=== PATIENT | male | born 1960 | race African-American/Black ===

== ENCOUNTER 2018-09-14 07:19 | Inpatient (IN) ==
[2018-09-14] MEDS ORDERED: INFLUENZA VIRUS VACCINE 0.5 ML SYRINGE IM ONE (09:19)
[2018-09-14] MEDS ORDERED: ONDANSETRON 4 MG/2 ML VIAL IV PRN (10:06)
[2018-09-14] MEDS ORDERED: LACTULOSE 20 GM/30 ML UDCUP PO PRN (10:06)
[2018-09-14] MEDS ORDERED: DOCUSATE SODIUM 100 MG CAPSULE PO PRN (10:06)
[2018-09-14] MEDS ORDERED: ZALEPLON 5 MG CAPSULE PO PRN (10:06)
[2018-09-14] MEDS ORDERED: NITROGLYCERIN SL 0.4 MG TABLET SL PRN (10:24)
[2018-09-14] MEDS ORDERED: hydrALAZINE 20 MG/1 ML VIAL IV PRN (10:26)
[2018-09-14 10:30] LABS: Basophils # 0.1 10*3/uL (0.0-0.2); Basophils % 0.5 % (0.0-0.8); Eosinophils # 0.1 10*3/uL (0.0-0.87); Eosinophils % 0.8 % (0.00-10.9); Hematocrit 41.3 VOL% (42.0-52.0); Hemoglobin 13.3 GM/DL (14.0-18.0); Immature Granulocytes % 0.4 %; Immature Granulocytes Absolute 0.04 #; Lymphocytes # 1.8 10*3/uL (1.4-4.0); Lymphocytes % 17.5 % (21.2-54.2); Mean Corpuscular HGB Conc 32.2 GM/DL (32-36); Mean Corpuscular Hemoglobin 27 PG (27-34); Mean Corpuscular Volume 83.9 FL (87-102); Mean Platelet Volume 10.9 FL (9.6-12.0); Monocytes # 0.7 10*3/uL (0.11-0.8); Neutrophils # 7.4 10*3/uL (1.4-7.4); Neutrophils % 73.8 % (38.7-73.9); Platelet Count 243 T/CUMM (130-400); Red Blood Count 4.92 MC/CUMM (3.8-5.5); Red Cell Distribution Width 14.2 % (9.3-17.3)
[2018-09-14] MEDS ORDERED: ASPIRIN EC 325 MG TABLET PO SCH (10:30)
[2018-09-14 11:08] LABS: Albumin 3.8 G/DL (3.4-5.0); Bilirubin,Total 0.7 MG/DL (0.2-1.0); Osmolality,Calculated 282.4 MOS/KG (273-304); Potassium 4.2 MMOL/L (3.5-5.1); Thyroid Stimulating Hormone 0.76 uIU/ml (0.358-3.74); Total Protein 7.6 G/DL (6.4-8.3)
[2018-09-14] MEDS ORDERED: dilTIAZem Drip 125 MG/125 ML PREMIX IV ONE (11:25)
[2018-09-14] MEDS ORDERED: ENOXAPARIN 40 MG/0.4 ML SYRINGE SUBCUT SCH (11:30)
[2018-09-14] MEDS: CLOPIDOGREL 75 MG TABLET PO SCH (11:38)
[2018-09-14] MEDS: FUROSEMIDE 40 MG TABLET PO SCH (11:39)
[2018-09-14] MEDS: LOSARTAN 50 MG TABLET PO SCH (11:39)
[2018-09-14] MEDS: busPIRone 15 MG TABLET PO SCH ×2 (11:39→21:17)
[2018-09-14] MEDS: dilTIAZem Drip 125 MG/125 ML PREMIX IV SCH (11:41)
[2018-09-14 12:00] LABS: Troponin I 0.284 NG/ML (0.00-0.045)
[2018-09-14 12:07] LABS: Apearance,Urine CLEAR (Clear); Bacteria,Urine Occasional /HPF (Few); Bilirubin,Urine Negative (Negative); Blood, Urine Negative (Negative); Glucose,Urine (UA) Negative (Negative); Ketones,Urine Negative (Negative); Mucus,Urine Occasional /LPF (Occasional); Nitrite,Urine Negative (Negative); Protein,Urine 30 MG/DL; RBC,Urine 4 /HPF (0-4); Squamous Epithelial Cell,Urine Occasional /HPF (0-10); Urine Color Yellow (Yellow); Urine Specific Gravity 1.014 (1.001-1.035); Urine Urobilinogen < 2.0 EU/DL (0.2-1.0); WBC,Urine 18 /HPF (0-6)
[2018-09-14 13:35] LABS: Barbiturates Screen,Urine Negative (Negative); Benzodiazepines Screen,Urine Negative (Negative); Cannabinoid Screen,Urine Negative (Negative); Opiate Screen,Urine Negative (Negative); Phencyclidine Screen,Urine Negative (Negative)
[2018-09-14] MEDS ORDERED: METOPROLOL TARTRATE 25 MG TABLET PO ONE (14:14)
[2018-09-14 14:19] LABS: Troponin I 0.298 NG/ML (0.00-0.045)
[2018-09-14] MEDS: ASCORBIC ACID 500 MG TABLET PO SCH ×2 (14:40→21:18)
[2018-09-14] MEDS ORDERED: DEXTROSE 50% 25 GM/50 ML SYRINGE IV PRN (15:46)
[2018-09-14] MEDS ORDERED: GLUCAGON 1 MG VIAL IM PRN (15:46)
[2018-09-14] MEDS ORDERED: METOPROLOL TARTRATE 25 MG TABLET PO SCH (21:00)
[2018-09-14] MEDS ORDERED: metFORMIN 500 MG TABLET PO SCH (21:00)
[2018-09-14] MEDS ORDERED: METOPROLOL TARTRATE 100 MG TABLET PO SCH (21:00)
[2018-09-14] MEDS ORDERED: APIXABAN 5 MG TABLET PO SCH (21:00)
[2018-09-14 21:18] LABS: Troponin I 0.296 NG/ML (0.00-0.045)
[2018-09-14] MEDS: APIXABAN 5 MG TABLET PO SCH (21:18)
[2018-09-14] MEDS: METOPROLOL TARTRATE 25 MG TABLET PO SCH (21:18)
[2018-09-14] MEDS: QUEtiapine 100 MG TABLET PO SCH (21:18)
[2018-09-14] MEDS: SIMVASTATIN 20 MG TABLET PO SCH (21:18)
[2018-09-14] MEDS: ACETAMINOPHEN 325 MG TABLET PO PRN (21:33)
[2018-09-14 21:35] LABS: Troponin I 0.296 NG/ML (0.00-0.045)
[2018-09-14 22:41] LABS: Troponin I 0.314 NG/ML (0.00-0.045)
[2018-09-15] MEDS ORDERED: ATROPINE 1 MG/10 ML SYRINGE IV ONE (03:32)
[2018-09-15 05:03] LABS: Basophils % 0.7 % (0.0-0.8); Eosinophils # 0.2 10*3/uL (0.0-0.87); Eosinophils % 3.3 % (0.00-10.9); Hematocrit 39.1 VOL% (42.0-52.0); Hemoglobin 12.5 GM/DL (14.0-18.0); Immature Granulocytes % 0.2 %; Immature Granulocytes Absolute 0.01 #; Lymphocytes % 35.9 % (21.2-54.2); Mean Corpuscular Hemoglobin 27 PG (27-34); Mean Corpuscular Volume 84.1 FL (87-102); Mean Platelet Volume 11.6 FL (9.6-12.0); Monocytes # 0.7 10*3/uL (0.11-0.8); Monocytes % 12.3 % (1.7-12.7); Neutrophils # 2.6 10*3/uL (1.4-7.4); Neutrophils % 47.6 % (38.7-73.9); Platelet Count 232 T/CUMM (130-400); Red Blood Count 4.65 MC/CUMM (3.8-5.5); Red Cell Distribution Width 14.2 % (9.3-17.3); White Blood Count 5.5 T/CUMM (4-12)
[2018-09-15 05:32] LABS: Calcium 8.8 MG/DL (8.5-10.1); Osmolality,Calculated 287.3 MOS/KG (273-304); Potassium 3.7 MMOL/L (3.5-5.1)
[2018-09-15 05:37] LABS: Risk Ratio 3.98; VLDL CHOLESTEROL 38.2 MG/DL
[2018-09-15] MEDS ORDERED: BISACODYL 5 MG TABLET PO ONE (07:54)
[2018-09-15] MEDS ORDERED: FUROSEMIDE 40 MG/4 ML VIAL IV ONE (08:07)
[2018-09-15] MEDS: LOSARTAN 50 MG TABLET PO SCH (08:21)
[2018-09-15] MEDS: ASCORBIC ACID 500 MG TABLET PO SCH ×2 (08:21→20:58)
[2018-09-15] MEDS: ISOSORBIDE MONONITRATE 30 MG TABLET PO SCH (08:22)
[2018-09-15] MEDS: MULTIVITAMIN (CENTRUM) TABLET PO SCH (08:22)
[2018-09-15] MEDS: CLOPIDOGREL 75 MG TABLET PO SCH (08:23)
[2018-09-15] MEDS: APIXABAN 5 MG TABLET PO SCH ×2 (08:23→21:00)
[2018-09-15] MEDS: busPIRone 15 MG TABLET PO SCH ×2 (08:23→20:58)
[2018-09-15] MEDS: METOPROLOL TARTRATE 25 MG TABLET PO SCH (09:18)
[2018-09-15] MEDS: dilTIAZem Drip 125 MG/125 ML PREMIX IV SCH (10:48)
[2018-09-15] MEDS: NICOTINE 21 MG/24 HR PATCH TRANSDERM SCH (11:12)
[2018-09-15] MEDS: INSULIN REGULAR 100 UNIT/ML SUBCUT SCH ×3 (11:16→21:01)
[2018-09-15] MEDS: DILTIAZEM 30 MG TABLET PO SCH ×2 (15:59→21:00)
[2018-09-15] MEDS: SIMVASTATIN 20 MG TABLET PO SCH (20:57)
[2018-09-15] MEDS: QUEtiapine 100 MG TABLET PO SCH (20:59)
[2018-09-15] MEDS: ACETAMINOPHEN 325 MG TABLET PO PRN (21:00)
[2018-09-15] MEDS ORDERED: METOPROLOL TARTRATE 25 MG TABLET PO SCH (21:00)
[2018-09-15] MEDS ORDERED: METOPROLOL TARTRATE 25 MG TABLET PO ONE (22:33)
[2018-09-15] MEDS ORDERED: dilTIAZem Drip 125 MG/125 ML PREMIX IV SCH (23:00)
[2018-09-16 05:43] LABS: Basophils # 0.1 10*3/uL (0.0-0.2); Basophils % 0.8 % (0.0-0.8); Eosinophils # 0.2 10*3/uL (0.0-0.87); Eosinophils % 3.5 % (0.00-10.9); Hematocrit 40.4 VOL% (42.0-52.0); Hemoglobin 12.9 GM/DL (14.0-18.0); Immature Granulocytes % 0.2 %; Immature Granulocytes Absolute 0.01 #; Lymphocytes # 2.3 10*3/uL (1.4-4.0); Lymphocytes % 39.3 % (21.2-54.2); Mean Corpuscular HGB Conc 31.9 GM/DL (32-36); Mean Corpuscular Hemoglobin 27 PG (27-34); Mean Corpuscular Volume 83.8 FL (87-102); Mean Platelet Volume 11.8 FL (9.6-12.0); Monocytes # 0.8 10*3/uL (0.11-0.8); Monocytes % 12.6 % (1.7-12.7); Neutrophils # 2.6 10*3/uL (1.4-7.4); Neutrophils % 43.6 % (38.7-73.9); Platelet Count 251 T/CUMM (130-400); Red Blood Count 4.82 MC/CUMM (3.8-5.5); Red Cell Distribution Width 14.2 % (9.3-17.3)
[2018-09-16 05:51] LABS: Calcium 8.8 MG/DL (8.5-10.1); Osmolality,Calculated 287.5 MOS/KG (273-304); Potassium 3.7 MMOL/L (3.5-5.1)
[2018-09-16 08:01] VITALS: BP 140/99
[2018-09-16] MEDS: INSULIN REGULAR 100 UNIT/ML SUBCUT SCH (08:20)
[2018-09-16] MEDS: busPIRone 15 MG TABLET PO SCH (08:21)
[2018-09-16] MEDS: CLOPIDOGREL 75 MG TABLET PO SCH (08:21)
[2018-09-16] MEDS: LOSARTAN 50 MG TABLET PO SCH (08:21)
[2018-09-16] MEDS: NICOTINE 21 MG/24 HR PATCH TRANSDERM SCH (08:21)
[2018-09-16] MEDS: MULTIVITAMIN (CENTRUM) TABLET PO SCH (08:21)
[2018-09-16] MEDS: FUROSEMIDE 40 MG TABLET PO SCH (08:22)
[2018-09-16] MEDS: APIXABAN 5 MG TABLET PO SCH (08:22)
[2018-09-16] MEDS: ISOSORBIDE MONONITRATE 30 MG TABLET PO SCH (08:22)
[2018-09-16] MEDS: ASCORBIC ACID 500 MG TABLET PO SCH (08:22)
[2018-09-16] MEDS: DILTIAZEM 30 MG TABLET PO SCH (08:24)
[2018-09-16] MEDS ORDERED: METOPROLOL TARTRATE 50 MG TABLET PO SCH (09:00)
== END 2018-09-16 11:07 | disposition home or self-care (01) | DRG 309 ==
LOC: N.TELEN 08:51 → INTOOBSV 08:51 → SUATTDRO 14:02
PROVIDERS: ADMIT Internal Medicine; ATTEND Hospitalist